=== PATIENT | female | born 1955 | race Caucasian/White ===

== ENCOUNTER 2020-10-02 09:50 | Outpatient (REF) | payer OTHER, SELFPAY ==
--- NOTE | 2020-10-02 09:56 | XR_ITS ---
EXAMINATION: XR SHOULDER, LEFT XR SHOULDER, RIGHT CLINICAL INFORMATION: Pain in left and right shoulder. COMPARISON: None TECHNIQUE: Left shoulder, 4 views Right shoulder, 4 views FINDINGS: Left shoulder: Bones have normal alignment. No fracture or subluxation. Small osteophytes of the mildly degenerated acromioclavicular joint. Humeral head is well-positioned over the glenoid. There is an enthesophyte of the greater tuberosity. 0.7 cm focus of calcium deposition (likely calcium hydroxyapatite crystal deposition) of the distal infraspinatus tendon. Linear calcifications -- possible calcium hydroxyapatite or calcium pyrophosphate crystal deposition -- along the supraspinatus tendon. The visualized portion of the left lung is normal. Right shoulder: Bones have normal alignment. No fracture or subluxation. Moderate osteoarthritis of the acromioclavicular joint. Small osteophytes of the mildly degenerated glenohumeral joint. The humeral head is well-positioned over the intact glenoid. There are linear and punctate calcifications of the distal supraspinatus tendon. The visualized portion of the right lung is normal. XR/XR shoulder LT min 2V IMPRESSION: * Mild and moderate osteoarthritis of acromioclavicular joints of the left and right shoulder, respectively. * Mild osteoarthritis of the right glenohumeral joint. * Calcium crystal deposition within bilateral rotator cuff tendons.
--- NOTE | 2020-10-02 09:56 | XR_ITS ---
EXAMINATION: XR SHOULDER, LEFT XR SHOULDER, RIGHT CLINICAL INFORMATION: Pain in left and right shoulder. COMPARISON: None TECHNIQUE: Left shoulder, 4 views Right shoulder, 4 views FINDINGS: Left shoulder: Bones have normal alignment. No fracture or subluxation. Small osteophytes of the mildly degenerated acromioclavicular joint. Humeral head is well-positioned over the glenoid. There is an enthesophyte of the greater tuberosity. 0.7 cm focus of calcium deposition (likely calcium hydroxyapatite crystal deposition) of the distal infraspinatus tendon. Linear calcifications -- possible calcium hydroxyapatite or calcium pyrophosphate crystal deposition -- along the supraspinatus tendon. The visualized portion of the left lung is normal. Right shoulder: Bones have normal alignment. No fracture or subluxation. Moderate osteoarthritis of the acromioclavicular joint. Small osteophytes of the mildly degenerated glenohumeral joint. The humeral head is well-positioned over the intact glenoid. There are linear and punctate calcifications of the distal supraspinatus tendon. The visualized portion of the right lung is normal. XR/XR shoulder RT min 2V IMPRESSION: * Mild and moderate osteoarthritis of acromioclavicular joints of the left and right shoulder, respectively. * Mild osteoarthritis of the right glenohumeral joint. * Calcium crystal deposition within bilateral rotator cuff tendons.
[2020-10-02 11:15] LABS: Hematocrit 40.4 % (37-47); Hemoglobin 13.2 g/dl (12.0-16.0); Mean Corpuscular HGB Conc 32.7 g/dl (31.0-35.0); Mean Corpuscular Hemoglobin 30.3 pg (27.0-33.0); Mean Corpuscular Volume 92.9 fL (80-98); Mean Platelet Volume 10.1 fL (9.4-12.3); Platelet Count 245 X10*3/uL (160-400); Red Blood Count 4.35 X10*6/uL (4.20-5.50); Red Cell Distribution Width 13.4 % (11.0-16.0); White Blood Count 5.1 X10*3/uL (4.8-10.8)
[2020-10-02 11:17] LABS: Glucose Urine UA NEG (NEG); Leukocyte Esterase Urine TRACE (NEG); Nitrite Urine NEG (NEG); Specific Gravity - Urine 1.015 (1.005-1.025); Urine Blood 1+ (NEG); Urine Ketones NEG (NEG); Urine Protein NEG (NEG-TRACE)
[2020-10-02 11:22] LABS: Appearance Urine CLEAR; Color Urine STRAW
[2020-10-02 11:27] LABS: Bacteria Urine 2+ /LPF
[2020-10-02 11:58] LABS: Erythrocyte Sedimentation Rate 7 MM/HR (0-20)
[2020-10-02 12:07] LABS: Alanine Aminotransferase 18 U/L (0-31); Albumin Level 4.7 g/dL (3.5-5.0); Alkaline Phosphatase 78 U/L (39-117); Anion Gap 11 (12-20); Aspartate Amino Transferase 20 U/L (5-31); Bilirubin Total 0.7 mg/dL (0.0-1.0); Blood Urea Nitrogen 14 mg/dL (9-16); Calcium 9.1 mg/dL (8.4-10.2); Carbon Dioxide 29 mmol/L (22-29); Chloride 105 mmol/L (96-108); Cholesterol 198 mg/dL; Estimated Glomerular Filt Rate > 60; Glucose Fasting 82 mg/dL (60-99); HDL Cholesterol 80 mg/dL; LDL Cholesterol Calculated 107 mg/dl; Potassium 4.3 mmol/L (3.3-5.1); Sodium 141 mmol/L (135-145); Total Protein 7.4 g/dL (6.5-8.0); Triglycerides 55 mg/dL
[2020-10-02 12:31] LABS: TSH reflex Free T4 4.81 uIU/mL (0.32-4.0)
[2020-10-02 12:39] LABS: Rheumatoid Factor < 15.0 IU/mL (<15.0)
[2020-10-04 12:22] LABS: Cyclic Citrullinated Peptide <16 UNITS
== END 2020-10-02 09:51 | disposition home or self-care (01) ==
LOC: HO.HMGCLDS 09:50
PROVIDERS: PCP Internal Medicine; Visit Provider Internal Medicine
DX: M25.512 Pain in left shoulder (principal); M25.511 Pain in right shoulder; E78.5 Hyperlipidemia, unspecified
CPT/HCPCS: 36415; 73030; 80053; 80061; 81001; 84439; 84443; 85027; 85652; 86200; 86431

== ENCOUNTER 2022-04-22 14:44 | Outpatient (REF) | payer OTHER, SELFPAY ==
--- NOTE | ~2022-04-22 | MM_ITS ---
EXAMINATION: MM SCREENING DIGITAL BREAST TOMOSYNTHESIS, BILATERAL CLINICAL INFORMATION: Screening. Asymptomatic. The lifetime risk of breast cancer based on the Tyrer-Cuzick Model is 4.4%. COMPARISON: Mammography: February 19, 2019 TECHNIQUE: Digital breast tomosynthesis is performed in both the craniocaudal and mediolateral oblique views along with computer-aided detection (CAD). Synthesized 2D images are generated from the tomosynthesis. FINDINGS: There are scattered areas of fibroglandular density (ACR BI-RADS breast composition Category b). There are no significant masses, abnormal calcifications, or other abnormalities. MM/MM tomosynthesis screening BI IMPRESSION: No mammographic evidence of malignancy. ASSESSMENT: BI-RADS 1: Negative RECOMMENDATION: Routine annual mammography screening. This patient's information was entered into a reminder system with a target due date for their next mammogram.
== END 2022-04-22 14:45 | disposition home or self-care (01) ==
LOC: HO.MAMMO 14:44
PROVIDERS: PCP Internal Medicine; Visit Provider Internal Medicine
DX: Z12.31 Encounter for screening mammogram for malignant neoplasm of breast (principal)
CPT/HCPCS: 77063; 77067

== ENCOUNTER 2023-05-30 16:10 | Outpatient (REF) | payer MEDICARE, OTHER, SELFPAY | END 2023-05-30 16:11 | disposition home or self-care (01) | LOC: HO.MAMMO 16:10 | PROVIDERS: PCP Internal Medicine; Visit Provider Internal Medicine | DX: Z12.31 Encounter for screening mammogram for malignant neoplasm of breast (principal) | CPT/HCPCS: 77063; 77067 ==

== ENCOUNTER → 2023-05-30 16:30 | Outpatient (BNV) | payer MEDICARE, SELFPAY | PROVIDERS: PCP Internal Medicine; Visit Provider Radiology Diagnostic Radiology | DX: Z12.31 Encounter for screening mammogram for malignant neoplasm of breast (principal) | CPT/HCPCS: 77063; 77067 ==

== ENCOUNTER 2024-03-11 08:47 | Outpatient (REF) | payer MEDICARE, MEDICAID, SELFPAY ==
[2024-03-11 10:09] LABS: MANUAL DIFF FLAG NO
[2024-03-11 10:22] LABS: Basophils Absolute Auto 0.1 X10*3/uL (0.0-0.2); Basophils Percent Auto 0.8 % (0-2); Eosinophils Absolute Auto 0.2 X10*3/uL (0.0-0.4); Eosinophils Percent Auto 2.8 % (0-4); Hematocrit 36.1 % (37.0-47.0); Hemoglobin 12.3 g/dl (12.0-16.0); Imm Gran Abs Auto 0.01 X10*3/uL (0.00-0.03); Imm Gran Pct Auto 0.2 % (0.0-0.4); Lymphocytes Absolute Auto 1.3 X10*3/uL (1.2-4.9); Lymphocytes Percent Auto 21.6 % (20-40); Mean Corpuscular HGB Conc 34.1 g/dl (31.0-35.0); Mean Corpuscular Hemoglobin 30.3 pg (27.0-33.0); Mean Corpuscular Volume 88.9 fL (80.0-98.0); Mean Platelet Volume 9.3 fL (9.4-12.3); Monocytes Absolute Auto 0.5 X10*3/uL (0.1-1.2); Monocytes Percent Auto 8.8 % (2-11); Neutrophils Percent Auto 65.8 % (45-73); Platelet Count 249 X10*3/uL (160-400); Red Blood Count 4.06 X10*6/uL (4.20-5.50); Red Cell Distribution Width 14.2 % (11.0-16.0)
[2024-03-11 11:02] LABS: Alanine Aminotransferase 15 U/L (0-31); Albumin Level 4.5 g/dL (3.5-5.0); Alkaline Phosphatase 71 U/L (39-117); Anion Gap 11 (12-20); Aspartate Amino Transferase 19 U/L (5-31); Bilirubin Total 0.7 mg/dL (0.0-1.0); Blood Urea Nitrogen 13 mg/dL (9-16); Calcium 9.5 mg/dL (8.4-10.2); Carbon Dioxide 27 mmol/L (22-29); Chloride 106 mmol/L (96-108); Cholesterol 322 mg/dL (<200); Estimated Glomerular Filt Rate > 60; Glucose Fasting 77 mg/dL (60-99); HDL Cholesterol 71 mg/dL (>40); LDL Cholesterol Calculated 239 mg/dL (<100); Potassium 4.4 mmol/L (3.3-5.1); Sodium 140 mmol/L (135-145); Total Protein 7.5 g/dL (6.5-8.0); Triglycerides 63 mg/dL (<150)
[2024-03-11 11:18] LABS: TSH reflex Free T4 2.79 uIU/mL (0.32-4.0); Vitamin D 25-OH Total 30.5 ng/mL (>30)
== END 2024-03-11 08:48 | disposition home or self-care (01) ==
LOC: HO.HMGCLDS 08:47
PROVIDERS: PCP Internal Medicine; Visit Provider Internal Medicine
DX: Z00.00 Encounter for general adult medical examination without abnormal findings (principal); E78.5 Hyperlipidemia, unspecified; E55.9 Vitamin D deficiency, unspecified
CPT/HCPCS: 36415; 80053; 80061; 82306; 84443; 85025

== ENCOUNTER 2024-03-15 13:34 | Outpatient (AMB) | payer MEDICARE, MEDICAID, SELFPAY ==
[2024-03-15 13:36] VITALS: BP 128/76; PULSE 73; O2SAT 95; BMI 21.1
--- NOTE | 2024-03-15 13:36 | A.OFFPC_ITS ---
Vital Signs 03/15/24 13:36 Height 5 ft 6 in Weight 131 lb BMI 21.1 BP 128/76 Blood Pressure Location Lt brachial Position Sitting Pulse 73 Pulse Source Pulse Oximeter Pulse Oximetry (%) 95 Oxygen Delivery Method Room Air Intake Visit Reasons: PE Intake Note: Pt is here today for PE. Allergies No Known Allergies Allergy (Verified 03/15/24 13:40) Medication List - Last Reconciled 03/15/24 by Mary Hartman MD rosuvastatin 20 mg PO DAILY Tobacco use date assessed: 03/15/24 Fall risk assessment: No Falls in past year Last assessed Fall Risk: 03/15/24 Dental Screening Dental Screen Date: 03/15/24 Did you have a dental visit in the last 12 months?: No Did you have a dental problem in the last 6 months where you did not have access to dental care?: No Was dental information given to patient?: Patient declined HPI PE HPI Details Pt presents for PE. Pt complains of intermittent left upper chest and substernal needle like pain lasting a few minutes, on and off worse when patient is anxious also with physical activity for 1 year. Patient denies nausea vomiting diaphoresis palpitations associated with the pain. She is stopped taki ng Crestor a few months ago because she could not get a refill. Patient complains of daily bilateral knee pain worse when walking up and down the stairs but also at rest. [facility] Medical History Shoulder pain, bilateral Hyperlipidemia Surgical History H/O colonoscopy No pertinent past surgical history Family History Father No problems noted. Mother HTN (hypertension) Social History Housing: House Patient Tobacco Use Status: Never used Tobacco e-Cigarette/Vaping Use: Never Used service: No Current occupational status: retired Cognitive needs: No Hearing needs: No Vision needs: Yes Questionnaire PHQ-9 Over the last 2 weeks, how often have you been bothered by any of the following problems? 1. Little interest or pleasure in doing things: not at all 2. Feeling down, depressed, or hopeless: not at all 3. Trouble falling or staying asleep, or sleeping too much: not at all 4. Feeling tired or having little energy: not at all 5. Poor appetite or overeating: not at all 6. Feeling bad about yourself - or that you are a failure or have let yourself or your family down: not at all 7. Trouble concentrating on things, such as reading the newspaper or watching television: not at all 8. Moving or speaking so slowly that other people could have noticed. Or the opposite - being so fidgety or restless that you have been moving around a lot more than usual: not at all 9. Thoughts that you would be better off or of hurting yourself in some way: not at all Total score: 0 Depression Screening Interpretation: Negative Depression Screening Done: Yes Source: Developed by Drs. Milton Parker, Aura Batista, Dante Oshea and colleagues, with an educational tommy from [employer]. Thrive Questionnaire Date Thrive assessed: 03/15/24 I am a: Patient What is your living situation today?: I have a steady place to live Within the past 12 months, did the food you bought not last and you didn't have the money to get more?: Never true Within the past 12 months, did you worry whether your food would run out before you got money to buy more?: Never true Do you have trouble paying for medicines?: No Do you have trouble getting transportation to medical appointments?: No Do you have trouble paying your heating and electricity bill?: No Do you have trouble taking care of your child, family member or friend?: No Do you have trouble with day-to-day activities such as bathing, preparing meals, shopping, managing finances, etc.?: No Are you currently unemployed and looking for a job?: No Are you interested in more education?: No Please select the resources that you would like help with: Housing/Usp Currently or been in a relationship where the following occur: No concerns rep orted THRIVE Score: 0 AUDIT C Alcohol Use Questionnaire (AUDIT-C) 1. How often do you have a drink containing alcohol?: Never 3. How often do you have six or more drinks on one occasion?: Never Total Score: 0 XOCHITL-7 AMB Questionnaire XOCHITL-7 Date XOCHITL - 7 assessed: 03/15/24 Feeling nervous, anxious, or on edge: 0 = Not at all Not being able to stop or control worryin = Not at all Worrying too much about different things: 0 = Not at all Trouble relaxin = Not at all Being so restless that it is hard to sit still: 0 = Not at all Becoming easily annoyed or irritable: 0 = Not at all Feeling afraid as if something awful might happen: 0 = Not at all Total XOCHITL-7 score (0-4 normal; 5-9 mild; 10-14 moderate; 15-21 severe): 0 Source: Developed by Drs. Milton Parker, Aura Batista, Dante Oshea and colleagues, with an educational tommy from [employer]. Review of Systems Const All systems reviewed & are unremarkable except as noted in HPI and below Reports no additional complaints Eyes Reports no additional complaints ENT Reports no additional complaints Card Reports no additional complaints Resp Reports no additional complaints GI Reports no additional complaints Reports no additional complaints Physical exam (Primary Care) Vital Signs: Last Vital Signs Pulse 73 03/15/24 13:36 BP 128/76 03/15/24 13:36 Pulse Ox 95 03/15/24 13:36 Oxygen Delivery Method Room Air 03/15/24 13:36 BMI result Body Mass Index 21.1 Tobacco/Smoking Status: Tobacco use Status Tobacco use date assessed 03/15/24 03/15/24 13:40 Patient Tobacco Use Status Never used Tobacco 03/15/24 13:40 e-Cigarette/Vaping Use Never Used 03/15/24 13:40 PHQ-9: PHQ-9 Score PHQ-9: Total score 0 03/15/24 13:47 Depression Screening Interpretation: Negative Thrive Assessment: Date of Thrive Assessment Date Thrive assessed 03/15/24 03/15/24 13:43 Currently or been in a relationship where the following occur: No concerns reported Const General: no acute distress HENMT Head: Yes normal to inspection Ears: hearing grossly normal bilaterally Face and sinus: Yes normal facial exam Eyes General: appearance normal, both eyes and all related structures Neck Neck: Yes no lymphadenopathy and Yes supple Resp Effort & Inspection: normal respiratory effort Auscultation: clear to auscultation bilaterally Cardio Rhythm: regular rhythm Heart sounds: S1 normal heart sound present and S2 normal heart sound present GI Inspection: Yes normal to inspection Palpation (GI): Soft to palpation Percussion: Yes normal to percussion Auscultation: normal bowel sounds Extrem Other: Decreased range of motion and crepitus in both knees, no soft tissue swelling erythema or warmth General: Yes no clubbing, cyanosis or edema Assessment and Plan Assessment & Plan (1) Hyperlipidemia: Code(s): E78.5 - Hyperlipidemia, unspecified Plan: Restart Crestor check lipid profile in 2 months (2) Bilateral knee pain: Code(s): M25.561 - Pain in right knee; M25.562 - Pain in left knee Plan: Obtain x-rays of both knees and referred to physical therapy. If the pain persists patient will be referred to orthopedic surgeon (3) Chest pain: Code(s): R07.9 - Chest pain, unspecified Plan: EKG showed normal sinus rhythm nonspecific ST-T changes. Patient will be referred for stress test to evaluate for ischemia follow-up in 2 months with a fasting labs before (4) Annual physical exam: Code(s): Z00.00 - Encounter for general adult medical examination without abnormal findings Plan: Well-balanced diet regular exercise stress management discussed with the patient. She has up-to-date with the mammogram and colonoscopy Orders: Orders NM cardiolite stress test Today I20.89 - Other forms of angina pectoris PT Evaluation and Treatment Today M25.561 - Pain in right knee, M25.562 - Pain in left knee XR knee standing BI Today M25.561 - Pain in right knee, M25.562 - Pain in left knee CA stress test Today R07.9 - Chest pain, unspecified Lipid Panel 2 Months E78.5 - Hyperlipidemia, unspecified Medications: Refilled rosuvastatin 20 mg PO DAILY 90 tabs 3RF Coding Level of Care Code Est Pt Prev Care >65y(35364) Diagnoses Hyperlipidemia E78.5 Bilateral knee pain M25.561; M25.562 Chest pain R07.9 Annual physical exam Z00.00
== END 2024-03-15 14:28 | disposition home or self-care (01) ==
PROVIDERS: PCP Internal Medicine; Visit Provider Internal Medicine
DX: Z00.00 Encounter for general adult medical examination without abnormal findings (principal); E78.5 Hyperlipidemia, unspecified; M25.561 Pain in right knee; M25.562 Pain in left knee; R07.9 Chest pain, unspecified
CPT/HCPCS: 99214; 99397

== ENCOUNTER → 2024-04-14 09:02 | Outpatient (REF) | payer MEDICARE, MEDICAID, SELFPAY ==
--- NOTE | ~2024-04-14 | NM_ITS ---
EXERCISE MYOCARDIAL PERFUSION STUDY INDICATION: Chest pain TECHNIQUE: The patient was brought in for an exercise perfusion study on 04/14/2024. Patient performed exercise as per [facility] protocol and was injected 25 mCi of sestamibi once target heart rate was achieved. Images were obtained using the SPECT gamma camera interlaced with the gating device. Images were obtained in supine position. Resting perfusion study was performed on 04/15/2024. Patient was administered 25 mCi of sestamibi intravenously at rest. Images were then obtained in supine position. Images were processed with the software and compared side to side in short axis, horizontal long axis and vertical long axis views. Total DLP 64mGy-cm. FINDINGS: Raw images were reviewed. The stress perfusion study showed no significant perfusion abnormality. Both uncorrected as well as CT attenuation corrected images were reviewed. The gated study shows normal LV systolic function with calculated LVEF of 63%. LV cavity is normal in size. The gated study shows normal wall thickening and contraction of segments. Resting study shows diminished tracer uptake somewhat globally. There is also subdiaphragmatic tracer uptake which may lead to diminish myocardial counts. There is no significant change with CT attenuation correction. Gating at rest reveals normal wall motion with ejection fraction at 65%. The findings are consistent with no clear reversible or fixed perfusion defects but resting study suboptimal.. NM/NM cardiolite stress test IMPRESSION: 1. Myocardial perfusion imaging study shows normal myocardial perfusion. 2. Gated LVEF is 63% during stress and 65% during rest. 3. Transient ischemic dilatation not present. EKG component of the test reported separately.
--- NOTE | 2024-04-14 09:05 | CA_ITS ---
Acquisition Time: 2024-04-14 09:03:18 Total Exercise Time: 00:05:00 Test Indications: Chest Pain Medications: ROSUVASTATIN Protocol: CORRINE Max HR: 150 BPM 97% of Pred: 154 BPM Max BP: 170/078 mmHG Max Work Load: 5.8 METS Exercise stress test exercise 5 mins of Corrine protocol stage one achieving 97%, with mild SOB, no chest discomfort, with isolated PACs and PVCs and one venticular cuplet, with resting HTN, normotensive response to exericse, with baseline T wave abn, with increase in ST depression in leads 2, 3, aVF, V4-V6. Breathing returned to baseline. Nuclear images pending. Test reviewed with Dr. Rider. Referred By: Mary Hartman Overread By: Kristin Burden
== END ==
LOC: HO.CARD 09:02
PROVIDERS: PCP Internal Medicine; Visit Provider Internal Medicine
DX: R07.9 Chest pain, unspecified (principal); I20.89 Other forms of angina pectoris
CPT/HCPCS: 78452; 93017; A9500

== ENCOUNTER → 2024-04-14 09:05 | Outpatient (BNV) | payer MEDICARE, MEDICAID, SELFPAY | PROVIDERS: PCP Internal Medicine; Visit Provider Nurse Practitioner | DX: R07.9 Chest pain, unspecified (principal) | CPT/HCPCS: 78452; 93016; 93018 ==

== ENCOUNTER 2024-05-17 09:15 | Outpatient (REF) | payer MEDICARE, MEDICAID, SELFPAY ==
[2024-05-17 10:56] LABS: Cholesterol 185 mg/dL (<200); HDL Cholesterol 69 mg/dL (>40); LDL Cholesterol Calculated 98 mg/dL (<100); Triglycerides 90 mg/dL (<150)
== END 2024-05-17 09:16 | disposition home or self-care (01) ==
LOC: HO.HMGCLDS 09:15
PROVIDERS: PCP Internal Medicine; Visit Provider Internal Medicine
DX: E78.5 Hyperlipidemia, unspecified (principal)
CPT/HCPCS: 36415; 80061

== ENCOUNTER 2024-05-19 10:14 | Outpatient (AMB) | payer MEDICARE, MEDICAID, SELFPAY ==
[2024-05-19 10:15] VITALS: BP 132/78; PULSE 75; O2SAT 98; BMI 21.1
--- NOTE | 2024-05-19 10:15 | A.OFFPC_ITS ---
Vital Signs 05/19/24 10:15 Height 5 ft 6 in Weight 131 lb BMI 21.1 BP 132/78 Blood Pressure Location Lt brachial Position Sitting Pulse 75 Pulse Source Pulse Oximeter Pulse Oximetry (%) 98 Oxygen Delivery Method Room Air Intake Visit Reasons: 2 months follow up on labs Intake Note: Pt is here today for 2 months follow up visit after labs. Allergies No Known Allergies Allergy (Verified 05/19/24 10:20) Medication List - Last Reconciled 05/19/24 by Mary Hartman MD rosuvastatin 20 mg PO DAILY Tobacco use date assessed: 05/19/24 Dental Screening Dental Screen Date: 03/15/24 HPI 2 months follow up on labs HPI Details Patient presents for the follow-up on hyperlipidemia PFSH Medical History Shoulder pain, bilateral Hyperlipidemia Surgical History H/O colonoscopy No pertinent past surgical history Family History Father No problems noted. Mother HTN (hypertension) Social History Housing: House Patient Tobacco Use Status: Never used Tobacco e-Cigarette/Vaping Use: Never Used service: No Current occupational status: retired Cognitive needs: No Hearing needs: No Vision needs: Yes Questionnaire Thrive Questionnaire Date Thrive assessed: 03/15/24 I am a: Patient What is your living situation today?: I have a steady place to live Within the past 12 months, did the food you bought not last and you didn't have the money to get more?: Never true Within the past 12 months, did you worry whether your food would run out before you got money to buy more?: Never true Do you have trouble paying for medicines?: No Do you have trouble getting transportation to medical appointments?: No Do you have trouble paying your heating and electricity bill?: No Do you have trouble taking care of your child, family member or friend?: No Do you have trouble with day-to-day activities such as bathing, preparing meals, shopping, managing finances, etc.?: No Are you currently unemployed and looking for a job?: No Are you interested in more education?: No Please select the resources that you would like help with: None Currently or been in a relationship where the following occur: No concerns reported THRIVE Score: 0 XOCHITL-7 AMB Questionnaire XOCHITL-7 Date XOCHITL - 7 assessed: 03/15/24 Source: Developed by Drs. Milton Parker, Aura Batista, Dante Oshea and colleagues, with an educational tommy from [employer]. Review of Systems Const All systems reviewed & are unremarkable except as noted in HPI and below Card Reports no additional complaints Resp Reports no additional complaints GI Reports no additional complaints Reports no additional complaints Physical exam (Primary Care) Vital Signs: Last Vital Signs Pulse 75 05/19/24 10:15 BP 132/78 05/19/24 10:15 Pulse Ox 98 05/19/24 10:15 Oxygen Delivery Method Room Air 05/19/24 10:15 BMI result Body Mass Index 21.1 Tobacco/Smoking Status: Tobacco use Status Tobacco use date assessed 05/19/24 05/19/24 10:22 Patient Tobacco Use Status Never used Tobacco 05/19/24 10:17 e-Cigarette/Vaping Use Never Used 05/19/24 10:17 Thrive Assessment: Date of Thrive Assessment Date Thrive assessed 03/15/24 05/19/24 10:17 Currently or been in a relationship where the following occur: No concerns reported Const General: no acute distress HENMT Mouth: Normal oral and palatal mucosa present Neck Neck: Yes supple Resp Effort & Inspection: normal respiratory effort Auscultation: clear to auscultation bilaterally Cardio Rhythm: regular rhythm Heart sounds: S1 normal heart sound present and S2 normal heart sound present GI Inspection: Yes normal to inspection Palpation (GI): Soft to palpation Percussion: Yes normal to percussion Auscultation: normal bowel sounds Assessment and Plan Assessment & Plan (1) Vitamin D deficiency: Code(s): E55.9 - Vitamin D deficiency, unspecified Plan: Continue vitamin-D supplement (2) Hyperlipidemia: Code(s): E78.5 - Hyperlipidemia, unspecified Plan: Continue Crestor, return in 6 months with a fasting labs before (3) Annual physical exam: Code(s): Z00.00 - Encounter for general adult medical examination without abnormal f indings Orders: Orders Lipid Panel 6 Months E55.9 - Vitamin D deficiency, unspecified, E78.5 - Hyperlipidemia, unspecified, Z00.00 - Encounter for general adult medical examination without abnormal findings Complete Blood Count Auto Diff 6 Months E55.9 - Vitamin D deficiency, unspecified, E78.5 - Hyperlipidemia, unspecified, Z00.00 - Encounter for general adult medical examination without abnormal findings TSH reflex Free T4 6 Months E55.9 - Vitamin D deficiency, unspecified, E78.5 - Hyperlipidemia, unspecified, Z00.00 - Encounter for general adult medical examination without abnormal findings Vitamin B12 and Folate 6 Months D64.9 - Anemia, unspecified Comprehensive [place]. Panel Fast 6 Months E55.9 - Vitamin D deficiency, unspecified, E78.5 - Hyperlipidemia, unspecified, Z00.00 - Encounter for general adult medical examination without abnormal findings Vitamin D 25-OH Total 6 Months E55.9 - Vitamin D deficiency, unspecified, E78.5 - Hyperlipidemia, unspecified, Z00.00 - Encounter for general adult medical examination without abnormal findings IRON PROFILE 6 Months D64.9 - Anemia, unspecified Coding Level of Care Code Est Pt Level 3 (79628) Diagnoses Vitamin D deficiency E55.9 Hyperlipidemia E78.5 Annual physical exam Z00.00
== END 2024-05-19 11:06 | disposition home or self-care (01) ==
PROVIDERS: PCP Internal Medicine; Visit Provider Internal Medicine
DX: E55.9 Vitamin D deficiency, unspecified (principal); E78.5 Hyperlipidemia, unspecified; Z00.00 Encounter for general adult medical examination without abnormal findings

== ENCOUNTER → 2024-05-19 10:14 | Outpatient (BNVA) | payer MEDICARE, MEDICAID, SELFPAY | PROVIDERS: PCP Internal Medicine; Visit Provider Internal Medicine | DX: Z00.00 Encounter for general adult medical examination without abnormal findings (principal); E78.5 Hyperlipidemia, unspecified; E55.9 Vitamin D deficiency, unspecified | CPT/HCPCS: 99212 ==

== ENCOUNTER 2024-11-09 09:25 | Outpatient (REF) | payer MEDICARE, MEDICAID, SELFPAY ==
[2024-11-09 10:25] LABS: MANUAL DIFF FLAG NO
[2024-11-09 10:27] LABS: Basophils Absolute Auto 0.1 X10*3/uL (0.0-0.2); Basophils Percent Auto 0.9 % (0-2); Eosinophils Absolute Auto 0.1 X10*3/uL (0.0-0.4); Eosinophils Percent Auto 2.6 % (0-4); Hematocrit 36.9 % (37.0-47.0); Hemoglobin 12.6 g/dl (12.0-16.0); Imm Gran Abs Auto 0.02 X10*3/uL (0.00-0.03); Imm Gran Pct Auto 0.4 % (0.0-0.4); Lymphocytes Absolute Auto 1.6 X10*3/uL (1.2-4.9); Lymphocytes Percent Auto 28.2 % (20-40); Mean Corpuscular HGB Conc 34.1 g/dl (31.0-35.0); Mean Corpuscular Hemoglobin 30.4 pg (27.0-33.0); Mean Corpuscular Volume 88.9 fL (80.0-98.0); Mean Platelet Volume 9.6 fL (9.4-12.3); Monocytes Absolute Auto 0.6 X10*3/uL (0.1-1.2); Monocytes Percent Auto 10.7 % (2-11); Neutrophils Absolute Auto 3.1 x10*3/uL (2.0-8.3); Neutrophils Percent Auto 57.2 % (45-73); Platelet Count 237 X10*3/uL (160-400); Red Blood Count 4.15 X10*6/uL (4.20-5.50); White Blood Count 5.5 X10*3/uL (4.8-10.8)
--- OUTSIDE RECORDS SUMMARY | 2024-11-09 10:33 | XMS_ITS | Clinical Summary ---
Author Organization [facility] Address [address] [place] [address] Care Team Providers Care Cleaning Staff Supervisor Name Role Phone Tea Rucker [facility] Primary Care Provider [phone] Source Comments PLEASE NOTE, if this patient is a minor, it may be UNLAWFUL to discuss sensitive information that is contained in these records (such as FAMILY PLANNING, MENTAL HEALTH or SUBSTANCE ABUSE) with the minor patient's parent or other person without the patient's specific authorization.[facility] Allergies No known active allergies Medications fish oil-dha-epa 1,200-144-216 mg per capsuleIndications: Mixed hyperlipidemia Take 1 Cap by mouth 3 (three) times daily. 90 Cap 11 6 Active Active Problems Problem Noted Date Diagnosed Date Mixed hyperlipidemia 10/25/2015 Family History Medical History Relation Name Comments Asthma Neg Cancer Neg Diabetes Neg Hypertension Neg Social History Tobacco Use Types Packs/Day Years Used Date Smoking Tobacco: Never Smokeless Tobacco: Never Alcohol Use Standard Drinks/Week Comments No 0 (1 standard drink = 0.6 oz pur e alcohol) Social Connections Answer Date Recorded Social Connections and Isolation 0 04/25/2019 Financial Resource Strain Answer Date R ecorded Financial Resource Strain 0 2018 Stress Answer Date Recorded Stress 0 04/25/2019 Physical Activity Answer Date Recorded Physical Activity 0 04/25/2019 Food Insecurity Answer Date Recorded Food 0 04/25/2019 Transportation Needs Answer Date Record ed Transportation 0 04/25/2019 Housing Stability Answer Date Recorded Housing 0 04/25/2019 Safety and Environment Answer Date Kale rded Safety 0 04/25/2019 Utilities Answer Date Recorded Utilities 0 04/25/2019 Employment Answer Date Recorded Employment 0 04/25/2019 Comments No Sex and Gender Information Value Date Recorded Sex Assigned at Not on file Legal Sex Female 8:40 AM PST Gender Identity Not on file Sexual Orientation Not on file Last Filed Vital Signs Vital Sign Reading Time Taken Comments Blood Pressure 144/86 11/08/2015 3:32 PM EST Pulse 60 11/08/2015 3:32 PM EST Temperature 36.7 ??C (98 ??F) 11/08/2015 3:32 PM EST Respiratory Rate 16 11/08/2015 3:32 PM EST Oxygen Saturation - - Inhaled Oxygen Concentration - - Weight 60.8 kg (134 lb) 11/08/2015 3:32 PM EST Height 160 cm (5' 3 ) 11/08/2015 3:32 PM EST Body Mass Index 23.74 11/08/2015 3:32 PM EST Plan of Treatment Not on file Insurance [employer] Care Teams Cleaning Staff Supervisor Relationship Specialty Start Date End Date Tea Rucker FNP [facility] [place] [address] PCP - General Family Medicine, PROTEIN SCIENTIST 08/29/16
[2024-11-09 10:53] LABS: Alanine Aminotransferase 23 U/L (0-31); Albumin Level 4.5 g/dL (3.5-5.0); Alkaline Phosphatase 76 U/L (39-117); Anion Gap 11 (12-20); Aspartate Amino Transferase 25 U/L (5-31); Bilirubin Total 0.7 mg/dL (0.0-1.0); Blood Urea Nitrogen 15 mg/dL (9-16); Calcium 9.4 mg/dL (8.4-10.2); Carbon Dioxide 28 mmol/L (22-29); Chloride 108 mmol/L (96-108); Cholesterol 190 mg/dL (<200); Estimated Glomerular Filt Rate > 60; Glucose Fasting 78 mg/dL (60-99); HDL Cholesterol 71 mg/dL (>40); Iron 85 mcg/dL (30-160); LDL Cholesterol Calculated 110 mg/dL (<100); Percent Iron Saturation 29 % (15-50); Potassium 4.8 mmol/L (3.3-5.1); Sodium 142 mmol/L (135-145); Total Iron Binding Capacity 296 mcg/dL (228-428); Total Protein 7.9 g/dL (6.5-8.0); Triglycerides 47 mg/dL (<150); Unsaturated Iron Binding 211 ug/dL
[2024-11-09 11:07] LABS: TSH reflex Free T4 1.03 uIU/mL (0.32-4.0); Vitamin D 25-OH Total 33.7 ng/mL (>30)
[2024-11-09 11:20] LABS: Folate 14.6 ng/mL (> or = 4.0); Vitamin B12 255 pg/mL (200-900)
== END 2024-11-09 09:26 | disposition home or self-care (01) ==
LOC: HO.HMGCLDS 09:25
PROVIDERS: PCP Internal Medicine; Visit Provider Internal Medicine
DX: Z00.00 Encounter for general adult medical examination without abnormal findings (principal); D64.9 Anemia, unspecified; E78.5 Hyperlipidemia, unspecified; E55.9 Vitamin D deficiency, unspecified
CPT/HCPCS: 36415; 80053; 80061; 82306; 82607; 82746; 83540; 84443; 85025

== ENCOUNTER 2024-11-15 09:43 | Outpatient (AMB) | payer MEDICARE, MEDICAID, SELFPAY ==
[2024-11-15 09:54] VITALS: BP 120/70; PULSE 78; RESP 18; TEMP 37.1; O2SAT 97; BMI 22.8
--- NOTE | 2024-11-15 09:54 | A.OFFPC_ITS ---
Vital Signs 11/15/24 09:54 Height 5 ft 6 in Weight 141 lb BMI 22.8 BP 120/70 Blood Pressure Location Lt brachial Position Sitting Respiration 18 Pulse 78 Pulse Source Pulse Oximeter Temp 98.7 F Temp Source Oral Pulse Oximetry (%) 97 Oxygen Delivery Method Room Air Intake Visit Reasons: Annual PE/Covered by secondary Intake Note: Pt is here today for PE Allergies No Known Allergies Allergy (Verified 11/15/24 09:59) Medication List - Last Reconciled 11/15/24 by Mary Hartman MD rosuvastatin 20 mg PO DAILY Tobacco use date assessed: 11/15/24 Fall risk assessment: No Falls in past year Last assessed Fall Risk: 11/15/24 Dental Screening Dental Screen Date: 11/15/24 Did you have a dental visit in the last 12 months?: No Did you have a dental problem in the last 6 months where you did not have access to dental care?: No Was dental information given to patient?: Patient declined HPI Annual PE/Covered by secondary HPI Details Pt presents for PE. PFSH Medical History Shoulder pain, bilateral Hyperlipidemia Surgical History H/O colonoscopy No pertinent past surgical history Family History Father No problems noted. Mother HTN (hypertension) Social History Housing: House Patient Tobacco Use Status: Never used Tobacco e-Cigarette/Vaping Use: Never Used service: No Current occupational status: retired Cognitive needs: No Hearing needs: No Vision needs: Yes Questionnaire PHQ-9 Over the last 2 weeks, how often have you been bothered by any of the following problems? 1. Little interest or pleasure in doing things: not at all 2. Feeling down, depressed, or hopeless: not at all 3. Trouble falling or staying asleep, or sleeping too much: not at all 4. Feeling tired or having little energy: not at all 5. Poor appetite or overeating: not at all 6. Feeling bad about yourself - or that you are a failure or have let yourself or your family down: not at all 7. Trouble concentrating on things, such as reading the newspaper or watching television: not at all 8. Moving or speaking so slowly that other people could have noticed. Or the o pposite - being so fidgety or restless that you have been moving around a lot more than usual: not at all 9. Thoughts that you would be better off or of hurting yourself in some way: not at all Total score: 0 Depression Screening Interpretation: Negative Depression Screening Done: Yes 91972 - PHQ-9 Billing: Yes Source: Developed by Drs. Milton Parker, Aura Batista, Dante Oshea and colleagues, with an educational tommy from [employer]. Thrive Questionnaire Date Thrive assessed: 03/15/24 I am a: Patient What is your living situation today?: I have a steady place to live Within the past 12 months, did the food you bought not last and you didn't have the money to get more?: Never true Within the past 12 months, did you worry whether your food would run out before you got money to buy more?: Never true Do you have trouble paying for medicines?: No Do you have trouble getting transportation to medical appointments?: No Do you have trouble paying your heating and electricity bill?: Yes Do you have trouble taking care of your child, family member or friend?: No Do you have trouble with day-to-day activities such as bathing, preparing meals, shopping, managing finances, etc.?: No Are you currently unemployed and looking for a job?: I choose not to answer this question Are you interested in more education?: I choose not to answer this question Please select the resources that you would like help with: None Currently or been in a relationship where the following occur: No concerns reported THRIVE Score: 1 AUDIT C Alcohol Use Questionnaire (AUDIT-C) 1. How often do you have a drink containing alcohol?: Never 3. How often do you have six or more drinks on one occasion?: Never Total Score: 0 XOCHITL-7 AMB Questionnaire XOCHITL-7 Date XOCHITL - 7 assessed: 03/15/24 Feeling nervous, anxious, or on edge: 0 = Not at all Not being able to stop or control worryin = Not at all Worrying too much about different things: 0 = Not at all Trouble relaxin = Not at all Being so restless that it is hard to sit still: 0 = Not at all Becoming easily annoyed or irritable: 0 = Not at all Feeling afraid as if something awful might happen: 0 = Not at all Total XOCHITL-7 score (0-4 normal; 5-9 mild; 10-14 moderate; 15-21 severe): 0 Source: Developed by Drs. Milton Parker, Aura Batista, Dante Oshea and colleagues, with an educational tommy from [employer]. Review of Systems Const All systems reviewed & are unremarkable except as noted in HPI and below Eyes Reports no additional complaints ENT Reports no additional complaints Card Reports no additional complaints Resp Reports no additional complaints GI Reports no additional complaints Reports no additional complaints Physical exam (Primary Care) Vital Signs: Last Vital Signs Temp 98.7 F 11/15/24 09:54 Pulse 78 11/15/24 09:54 Resp 18 11/15/24 09:54 BP 120/70 11/15/24 09:54 Pulse Ox 97 11/15/24 09:54 Oxygen Delivery Method Room Air 11/15/24 09:54 BMI result Body Mass Index 22.8 Tobacco/Smoking Status: Tobacco use Status Tobacco use date assessed 11/15/24 11/15/24 10:01 Patient Tobacco Use Status Never used Tobacco 11/15/24 10:01 e-Cigarette/Vaping Use Never Used 11/15/24 09:54 PHQ-9: PHQ-9 Score PHQ-9: Total score 0 11/15/24 09:54 Depression Screening Interpretation: Negative Thrive Assessment: Date of Thrive Assessment Date Thrive assessed 03/15/24 11/15/24 09:54 Currently or been in a relationship where the following occur: No concerns reported Const General: no acute distress HENMT Head: Yes normal to inspection Ears: hearing grossly normal bilaterally Face and sinus: Yes normal facial exam Mouth: Normal oral and palatal mucosa present Eyes General: appearance normal, both eyes and all related structures Neck Neck: Yes no lymphadenopathy and Yes supple Resp Effort & Inspection: normal respiratory effort Auscultation: clear to auscultation bilaterally Cardio Rhythm: regular rhythm Heart sounds: S1 normal heart sound present and S2 normal heart sound present GI Inspection: Yes normal to inspection Palpation (GI): Soft to palpation Percussion: Yes normal to percussion Auscultation: normal bowel sounds Coding Level of Care Code Est Pt Prev Care >65y(58578) Diagnoses Hyperlipidemia E78.5 Annual physical exam Z00.00 Vitamin D deficiency E55.9 Additional Codes PHQ-9 - 06584 - PHQ-9 Billing: Yes ([id number]) Assessment & Plan Assessment & Plan (1) Hyperlipidemia: Code(s): E78.5 - Hyperlipidemia, unspecified Category: Medical Plan: cont statin (2) Annual physical exam: Code(s): Z00.00 - Encounter for general adult medical examination without abnormal findings Category: Medical Plan: Well-balanced diet regular physical activity discussed with the patient mammogram and DEXA will be scheduled. Patient will bring the copy of her last colonoscopy report (3) Vitamin D deficiency: Code(s): E55.9 - Vitamin D deficiency, unspecified Category: Medical Plan: Continue vitamin-D supplement Orders: Orders MM screening mammo BI Today Z12.11 - Encounter for screening for malignant neoplasm of colon, Z12.31 - Encounter for screening mammogram for malignant neoplasm of breast XR DEXA axial skeleton Today Z12.11 - Encounter for screening for malignant neoplasm of colon Comprehensive Quinter. Panel Fast 1 Year D64.9 - Anemia, unspecified, E55.9 - Vitamin D deficiency, unspecified, E78.5 - Hyperlipidemia, unspecified, Z00.00 - Encounter for general adult medical examination without abnormal findings, Z12.11 - Encounter for screening for malignant neoplasm of colon Complete Blood Count Auto Diff 1 Year D64.9 - Anemia, unspecified, E55.9 - Vitamin D deficiency, unspecified, E78.5 - Hyperlipidemia, unspecified, Z00.00 - Encounter for general adult medical examination without abnormal findings, Z12.11 - Encounter for screening for malignant neoplasm of colon Lipid Panel 1 Year D64.9 - Anemia, unspecified, E55.9 - Vitamin D deficiency, unspecified, E78.5 - Hyperlipidemia, unspecified, Z00.00 - Encounter for general adult medical examination without abnormal findings, Z12.11 - Encounter for screening for malignant neoplasm of colon TSH reflex Free T4 1 Year D64.9 - Anemia, unspecified, E55.9 - Vitamin D deficiency, unspecified, E78.5 - Hyperlipidemia, unspecified, Z00.00 - Encounter for general adult medical examination without abnormal findings, Z12.11 - Encounter for screening for malignant neoplasm of colon Vitamin D 25-OH Total 1 Year D64.9 - Anemia, unspecified, E55.9 - Vitamin D deficiency, unspecified, E78.5 - Hyperlipidemia, unspecified, Z00.00 - Encounter for general adult medical examination without abnormal findings, Z12.11 - Encounter for screening for malignant neoplasm of colon Medications: Refilled rosuvastatin 20 mg PO DAILY 90 tabs 3RF Z12.11 - Encounter for screening for malignant neoplasm of colon
== END 2024-11-15 10:24 | disposition home or self-care (01) ==
LOC: HO.HMCC 09:44
PROVIDERS: PCP Internal Medicine; Visit Provider Internal Medicine
DX: Z00.00 Encounter for general adult medical examination without abnormal findings (principal); E78.5 Hyperlipidemia, unspecified; E55.9 Vitamin D deficiency, unspecified

== ENCOUNTER → 2024-11-15 09:43 | Outpatient (BNVA) | payer MEDICARE, MEDICAID, SELFPAY | PROVIDERS: PCP Internal Medicine; Visit Provider Internal Medicine | DX: Z00.00 Encounter for general adult medical examination without abnormal findings (principal); E78.5 Hyperlipidemia, unspecified; E55.9 Vitamin D deficiency, unspecified | CPT/HCPCS: 96127; 99397 ==

== ENCOUNTER 2025-01-21 08:42 | Outpatient (REF) | payer MEDICARE, MEDICAID, SELFPAY ==
--- NOTE | ~2025-01-21 | MM_ITS ---
EXAMINATION: DXA BONE DENSITY AXIAL HISTORY: Z78.0 TECHNIQUE: [employer] Dual energy absorptiometry (DEXA) of the lumbar spine, total left hip, and femoral neck was performed. COMPARISON: There are no prior studies for comparison. FINDINGS: The bone mineral density of the lumbar spine is 0.875, corresponding to a T-score of -2.4, and a Z-score of -0.9. This is indicative of osteopenia. The bone mineral density of the left total hip is 0.842, corresponding to a T-score of -1.3, and a Z-score of -0.1. This is indicative of osteopenia. The bone mineral density of the left femoral neck is 0.749, corresponding to a T-score of -2.1, and a Z-score of -0.6. This is indicative of osteopenia. FRACTURE RISK: The FRAX index suggests a risk of major osteoporotic fracture of 11.9%, and of hip fracture 2.1%. MM/XR DEXA axial skeleton IMPRESSION: Based on bone mineral density, and according to World Health Organization (WHO) criteria, the diagnosis is consistent with osteopenia. All bone density values are in grams per centimeter squared (g/cm2). Statistically, 68% of repeat scans fall within 1 SD (+/- 0.010 g/cm2 for AP spine L1-L4) and 1 SD (+/- 0.012 g/cm2 for femur total) FRAX is a trademark of the [employer] [place] [facility] Metabolic Bone Disease, a World Health Organization (WHO) Collaborating Center. Electronically signed by: Milton Whiteside MD 01/21/2025 10:53 AM EDT
--- OUTSIDE RECORDS SUMMARY | 2025-01-21 08:55 | XMS_ITS | Clinical Summary ---
Author Organization [facility] Address [address] [place] [address] Care Team Providers Care Ticket Scheduler Name Role Phone Tea Rucker [facility] Primary Care Provider [phone] Source Comments PLEASE NOTE, if this patient [...] Not on file Insurance [employer] Care Teams Ticket Scheduler Relationship Specialty Start Date End Date Tea Rucker FNP [facility] [place] [address] PCP - General Family Medicine, WOOL BRUSHER 08/29/16
== END 2025-01-21 08:43 | disposition home or self-care (01) ==
LOC: HO.MAMMO 08:42
PROVIDERS: PCP Internal Medicine; Visit Provider Internal Medicine
DX: Z12.31 Encounter for screening mammogram for malignant neoplasm of breast (principal); Z13.820 Encounter for screening for osteoporosis; Z78.0 Asymptomatic menopausal state
CPT/HCPCS: 77063; 77067; 77080

== ENCOUNTER → 2025-01-21 09:15 | Outpatient (BNV) | payer MEDICARE, MEDICAID, SELFPAY | PROVIDERS: PCP Internal Medicine; Visit Provider Radiology Diagnostic Radiology | DX: Z12.31 Encounter for screening mammogram for malignant neoplasm of breast (principal) | CPT/HCPCS: 77063; 77067 ==